=== PATIENT | male | born 1975 | race Caucasian/White ===

== ENCOUNTER 2021-12-10 00:45 | Day surgery (SDC) | payer BC, SELFPAY ==
[2021-12-03 12:47] VITALS: BMI 29.5
--- NOTE | 2021-12-03 12:52 | PC.NURSE ---
Report to the Outpatient Waiting Room, entrance under the green pavilion located off [facility], at time 1000 on date 12/10/21. OR Time: 1200. Time changes happen often and if your time is changed the preop area will call you the afternoon before. - You and your visitor will be asked to self-screen and do not enter if you have any COVID symptoms. - Only one visitor and NO children visitors are allowed at this time. - The patient visitor is requested to leave or wait in car when not with patient due to restrictions. - A mask is required within the hospital. Patients may have clear liquids (water, carbonated beverages, clear teas, apple juice) until 3 hours prior to surgery with a maximum of 20 ounces. - No food from midnight until time of surgery Take the following medications with a SIP of water the morning of surgery: N/A Medications to discontinue per physician: N/A Date to take last dose: N/A Please no make-up, nail irish, hairspray, perfume, deodorant, or body powder the day of surgery. No jewelry (including any body piercings) or valuables the day of surgery, leave them at home. Please take a shower or bath the night before, or the morning of, surgery with an antibacterial soap. Wear comfortable, loose fitting clothing. - Jewelry must be removed prior to entering the operating room. Rings and piercings that are not removed may be cut off. - The hospital will not accept responsibility for valuables. - Please leave all valuables, including medications, at home the day of surgery. If you are going home after surgery, a licensed cat driver must drive you home. - NO public transportation without another adult. - We recommend that an adult stay with you for 24 hours following discharge. - We also recommend that you do not drive, make important decision, drink alcoholic beverages, or take any drugs that were not prescribed by your health care provider for at least 24 hours after your discharge time. Follow any additional instructions given to you from your surgeon. If you or anyone in your household have experienced Covid symptoms in the past week, please notify your surgeon or the nurse liaison at the phone number below for possible testing. Telephone instructions given to PT - LONNIE CANNON and asked if any additional questions and then verbalized understanding. Patient advised to call surgeon office or pre surgery nurse liaison [phone] if any additional questions.
--- NOTE | 2021-12-09 12:29 | WPDANESEPPF ---
Anes - Initial Pre Proc Eval Procedure: Operation Date: 12/10/21 12:00 Proposed Procedures p Bilateral Vasectomy - Sean Garcia MD Date/Time: 12/09/21 12:29 Surgeon: Sean Garcia MD Pre Op Diagnosis: desires sterilization Patient Data Age: 45 Gender: M Height: 1.75 m Weight: 90.72 kg Allergies Allergy/AdvReac Type Severity Reaction Status Date / Time No Known Allergies Allergy Verified 12/10/21 10:47 Home Medications Medication Instructions Recorded Confirmed Type No Home Medications 12/03/21 12/10/21 History Patient hx anesthesia problems: none Family hx anesthesia problems: none Results Review: All pre-operative results and documents have been reviewed as part of the pre-operative evaluation. [facility] Past Medical History Medical History (Updated 12/10/21 @ 11:11 by Kosta Amador MD) ETOH abuse Hyperlipidemia Obesity Social History Social History Smoking status: Never smoker Alcohol intake: current Drinks per week: 24 Substance use: current Substance use type: marijuana Living arrangements: with family Spiritual care concerns: No Anes - Eval Final PreProcedure Day of Procedure 12/09/21 12:29 Patient weight: obese Heart: regular rate and rhythm Lungs: clear to auscultation and normal air movement Airway: Mallampati scale class II Neurological: alert and oriented Last oral intake: >/= 8 hours ASA classification: III Emergent: no Anesthetic plan: proceed Anesthesia type and monitoring: general GIVS Results Review: All pre-operative results and documents have been reviewed as part of the pre-operative evaluation. Informed Consent: The patient's anesthetic plan and its attendant risks and benefits were discussed with the patient/family/POA. Questions were solicited and answers provided to the satisfaction of the patient/family/POA.
[2021-12-10] VITALS (8 sets, daily range): BP systolic 117–132; BP diastolic 75–90; PULSE 64–75; RESP 12–20; TEMP 36.2–36.5; O2SAT 94–99
[2021-12-10] MEDS: LACTATED RINGERS 1,000 ML 30 ML IV CONT (10:58)
--- NOTE | 2021-12-10 12:07 | WPDHPUPDATE1 ---
History and Physical Update Update Date/Time: 12/10/21 12:07 History and Physical has been reviewed, including an updated exam of the patient. There are NO changes in the patient's condition. Risks, benefits, and alternatives have been discussed and questions answered. Patient agrees to proceed with procedure. Proceed with bilateral vasectomy
[2021-12-10] MEDS: ceFAZolin 2 GM/D5W 50 ML 2 GM/50 ML BAG IVPB (12:40)
[2021-12-10] MEDS: LIDOCAINE HCL 1% PF 30 ML VIAL 10 ML INFILTRATE (12:59)
--- NOTE | 2021-12-10 13:23 | W.PM.PROC2 ---
Procedure Note - Detailed Date of Procedure 12/10/21 Pre-op Diagnosis desires sterilization Post-op Diagnosis Same Procedure Performed Bilateral vasectomy Surgeon Sean Garcia MD Anesthesia General Description of Procedure Patient is taken to the operative suite correctly identified. Once anesthesia was obtained he was prepped draped usual sterile fashion. Midline scrotal incision was made. The right vas was isolated. There was quite a bit of scarring from his prior vasectomy as well as his vasectomy reversal. The prior suture was visualized. We excised the segment of vas fulgurated the ends and ligated. Similar procedure was then performed on the left side. There was good hemostasis. 1% lidocaine was used to anesthetize the cord and the skin. Skin was closed using 3-0 chromic. Patient tolerated procedure well without any complications taken recovery stable condition. Estimated Blood Loss 0 Drains No Packing No Pathology Yes Complications No immediate complications Condition Stable Disposition PACU
[2021-12-10] MEDS: oxyCODONE HCL (*CRX) 5 MG TAB IR PO (14:14)
== END 2021-12-10 15:00 | disposition home or self-care (01) ==
PROVIDERS: Visit Provider Urology
PROC: (CPT 55250; principal; 2021-12-10 12:00)
DX: Z30.2 Encounter for sterilization (principal); E78.5 Hyperlipidemia, unspecified; E66.9 Obesity, unspecified; Z68.30 Body mass index [BMI] 30.0-30.9, adult
CPT/HCPCS: 55250; 88300; A9270; J0690; J1100; J1170; J2250; J2405; J2704; J7120

== ENCOUNTER 2021-12-19 20:32 | Emergency (ER) | payer BC, SELFPAY ==
--- NOTE | ~2021-12-19 | CT_ITS ---
EXAMINATION: CT abdomen pelvis w con DATE: 12/19/2021 23:30 INDICATION: Abdomen pain. TECHNIQUE: Computed tomography (CT) of the abdomen and pelvis was performed without intravenous contr ast. The dose-length product was 816.65 mGy-cm. Automated exposure control and iterative reconstructi on technique were employed. COMPARISON: None. FINDINGS: Lung bases are unremarkable. Heart size normal. No significant pleural or pericardial effus ion. There is thickening of the distal esophagus, suspicious for esophagitis. The liver, spleen, panc reas, adrenal glands and kidneys are unremarkable. Nonobstructive bowel gas pattern. Normal appendix. No free air or free fluid. Gallbladder is present. No acute osseous abnormality. IMPRESSION: 1. No acute abdominal abnormality. 2: Possible mild thickening of the distal esophagus. Cannot exclude esophagitis. Consider correlatio n with upper GI examination. Reviewed, dictated and finalized at location B. IMPRESSION: 1. No acute abdominal abnormality. 2: Possible mild thickening of the distal esophagus. Cannot exclude esophagiti s. Consider correlation with upper GI examination.
[2021-12-19 20:37] VITALS: BP 138/87; PULSE 126; RESP 24; TEMP 38.3; O2SAT 100
[2021-12-19] MEDS: SODIUM CHLORIDE 0.9% IV 1,000 ML 999 ML IV CONT (22:39)
[2021-12-19] MEDS: ONDANSETRON INJ 4 MG/2 ML VIAL IV PUSH (22:40)
[2021-12-19 22:53] LABS: Basophils Absolute Auto 0.1 K/mm3 (0.0-0.1); Basophils Percent Auto 0.5 % (0.2-1.2); Eosinophils Absolute Auto 0.2 K/mm3 (0-0.3); Eosinophils Percent Auto 2.4 % (0-4.4); Hematocrit 42.1 % (42.0-52.0); Hemoglobin 14.2 g/dL (14.0-18.0); Immature Granulocyte Absolute 0.11 K/mm3 (0.00-0.031); Immature Granulocyte Percent A 1.1 % (0-0.5); Lymphocytes Absolute Auto 0.63 K/mm3 (0.9-3.2); Lymphocytes Percent Auto 6.5 % (18.3-44.2); Mean Corpuscular HGB Conc 33.7 g/dl (32-36); Mean Corpuscular Hemoglobin 29.8 pg (26-34); Mean Corpuscular Volume 88.3 fl (80-100); Mean Platelet Volume 9.6 fl (7.4-10.4); Monocytes Absolute Auto 0.8 K/mm3 (0.1-0.6); Monocytes Percent Auto 7.7 % (2.6-8.5); Neutrophils Percent Auto 81.8 % (45.5-73.1); Platelet Count Result 169 k/mm3 (150-375); Red Blood Count 4.77 M/mm3 (4.6-6.20); Red Cell Distribution Width 13.2 % (11.5-14.5); White Blood Count 9.8 K/mm3 (4.5-10.0)
[2021-12-19 23:13] LABS: Alanine Aminotransferase 37 U/L (6-50); Albumin Level 4.3 g/dL (3.5-5.1); Alkaline Phosphatase 73 U/L (38-126); Anion Gap 10 mmol/L (8-16); Aspartate Amino Transferase 31 U/L (17-59); Bilirubin,Total 0.9 mg/dL (0.2-1.3); Blood Urea Nitrogen 14 mg/dL (9-20); Calcium 8.7 mg/dL (8.4-10.2); Carbon Dioxide 25 mmol/L (22-30); Chloride 102 mmol/L (98-107); Estimated CRCL calculation 75 ml/min; Estimated Glomerular Filt Rate > 60; Glucose 110 mg/dL (65-110); Lipase 83 U/L (23-300); Potassium 4.2 mmol/L (3.4-5.0); Sodium 137 mmol/L (137-145)
[2021-12-19 23:31] LABS: SARS-CoV-2 RNA PCR Negative
[2021-12-19 23:44] VITALS: BP 1132/53; PULSE 99
[2021-12-19 23:45] VITALS: BP 132/69; PULSE 103
[2021-12-19 23:46] VITALS: BP 129/74; PULSE 110
--- NOTE | 2021-12-20 | ED.GENADULT ---
HPI - General Adult General Chief complaint: Fever Stated complaint: pain, chills, post op vasectomy Time Seen by Provider: 12/19/21 21:48 Source: RN notes reviewed History of Present Illness HPI narrative: Patient presents emergency department from home for fever. Patient states that today he developed a low-grade fever associated with body aches and chills with achiness in the groin he also notes he has had approximately 6 episodes of diarrhea today patient states that he did have a vasectomy performed by Dr. Garcia on 12/10/2021 states has been healing well from that and today was his first day back at work he states that he has had no rhinorrhea sore throat or cough he denies any new testicular pain and states he has been feeling well other than being generally sore and the scrotal region. Patient also notes nausea Related Data Allergies Allergy/AdvReac Type Severity Reaction Status Date / Time No Known Allergies Allergy Verified 12/19/21 20:43 Review of Systems Review of Systems: Gen.: Reports fevers and chills Eyes: Denies eye pain or visual change ENT: Denies congestion or sore throat Respiratory: Denies shortness of breath or cough CV: Denies chest pain or palpitations GI: Denies abdominal pain or emesis. Reports nausea and diarrhea denies burning, urgency, frequency or hematuria Musculoskeletal: Reports generalized body ache Neuro: Denies numbness, tingling, weakness or focal weakness Skin: Denies rash Except as documented, all other systems reviewed and negative [facility] Past Medical History Medical History ETOH abuse Hyperlipidemia Obesity Social History Social History Smoking status: Never smoker Alcohol intake: current Drinks per week: 24 Substance use: current Substance use type: marijuana Spiritual care concerns: No Exam Narrative: APPEARANCE: No acute distress, nontoxic, resting in bed EYES: EOMI HEENT: Normocephalic, atraumatic, OMM RESPIRATORY: No respiratory distress Clear to auscultation bilaterally with no rhonchi wheezing or rales. CARDIOVASCULAR: Regular rate and rhythm without murmurs rubs or gallops. ABDOMINAL: Soft, nondistended tender palpation right lower quadrant no tenderness right upper quadrant, left upper quadrant left lower quadrant no rebound or guarding : Circumcised, healing surgical wound with no surrounding erythema or signs of infection there is some mild surrounding ecchymosis there is no scrotal swelling or erythema of the bilateral testicles are mildly tender to palpation no hernias palpated MUSCULOSKELETAl: Moves all extremities. No clubbing, cyanosis or edema. NEURO: Awake and alert. Following commands, speech normal, no focal deficits SKIN:: Warm, dry. No rashes lesions or abrasions PSYCHIATRIC: Normal affect/mood, Course Course Emergency Course: On patient's exam he states that he has had consistent mild tenderness to bilateral testicles that is unchanged today he notes no increased pain to the testicles today Called and discussed with Dr. Escalante for urology we discussed the patient's symptoms of fever with diarrhea general body aches discussed testicular exam at this time does not feel ultrasound is indicated feels patient may be discharged to follow-up as an outpatient Discussed with patient results of workup and diagnosis. Discussed need for follow-up with primary care, proper use of medication, and reasons to return to the emergency department. Patient understands and agrees to current treatment plan Vital Signs Vital signs: Vital Signs Temperature 100.9 F H 12/19/21 20:37 Pulse Rate 126 H 12/19/21 20:37 Respiratory Rate 24 H 12/19/21 20:37 Blood Pressure 138/87 12/19/21 20:37 Pulse Oximetry 100 12/19/21 20:37 Oxygen Delivery Room Air 12/19/21 20:37 Temperature 98.6 F 12/20/21 01:00 Pulse Rate 110 H 12/19/21 23:46
[2021-12-20 00:30] LABS: Appearance Urine Clear (Clear); Bilirubin Urine Negative (Negative); Blood Urine Negative (Negative); Color Urine Yellow (Yellow); Glucose Urine UA Negative (Negative); Ketones Urine Negative (Negative); Leukocyte Esterase Ur Negative LEU/UL (Negative); Nitrate Urine Negative (Negative); Protein Urine Negative (Negative); Urobilinogen Urine 0.2 mg/dL (<2.0)
[2021-12-20 00:32] LABS: Bacteria Urine Trace /hpf; Mucus Urine Rare /lpf; RBC Urine 0-2 /hpf (0-2); WBC Urine 0-3 /hpf
[2021-12-20 00:36] LABS: Add Urine Microscopic? YES
[2021-12-20] MEDS: SODIUM CHLORIDE 0.9% IV 1,000 ML 999 ML IV CONT (00:39)
[2021-12-20 01:00] VITALS: TEMP 37
[2021-12-20] MEDS: KETOROLAC 30 MG/ML VIAL (*BKC) IV PUSH (02:12)
== END 2021-12-20 02:39 | disposition home or self-care (01) ==
PROVIDERS: Emergency Provider Emergency Medicine
DX: B34.9 Viral infection, unspecified (principal); R19.7 Diarrhea, unspecified; Z20.822 Contact with and (suspected) exposure to COVID-19; E78.5 Hyperlipidemia, unspecified; E66.9 Obesity, unspecified; Z68.29 Body mass index [BMI] 29.0-29.9, adult; R93.3 Abnormal findings on diagnostic imaging of other parts of digestive tract; Z98.52 Vasectomy status
CPT/HCPCS: 36415; 74177; 80053; 81001; 83605; 83690; 85025; 87804; 96361; 96365; 96375; 99284; C9803; J0131; J1885; J2405; J7030; Q9967; U0003; U0005